=== PATIENT | female | born 1985 | race Caucasian/White ===

== ENCOUNTER → 2017-02-23 | Outpatient (CLI) | payer OTHER | LOC: FIMAGING 10:13 | PROVIDERS: ATTEND Advanced Practice Midwife | DX: O99.282 Endocrine, nutritional and metabolic diseases complicating pregnancy, second trimester (principal); O34.219 Maternal care for unspecified type scar from previous cesarean delivery; E03.9 Hypothyroidism, unspecified; R62.52 Short stature (child); Z3A.20 20 weeks gestation of pregnancy ==